=== PATIENT | male | born 1990 | race American Indian/Alaskan Native ===

== ENCOUNTER → 2018-01-06 | Outpatient (CLI) | payer OTHER | LOC: COL.PUL 10:45 | DX: R06.02 Shortness of breath (principal) | CPT/HCPCS: J7674 ==

== ENCOUNTER 2018-05-07 02:12 | Emergency (ER) | payer OTHER ==
[~2018-05-07] VITALS: Ht 177.8 cm; Wt 86.4 kg
[2018-05-07 02:15] VITALS: TEMP 98.8
[2018-05-07] MEDS ORDERED: NEURONTIN100 MG/CAP PO (03:04)
[2018-05-07] MEDS ORDERED: MELADOX NATURAL3 MG PO (03:04)
[2018-05-07] MEDS ORDERED: DESYREL 50MG50 MG PO (03:04)
[2018-05-07] MEDS ORDERED: MOTRIN 800800 MG/TAB PO (03:05)
[2018-05-07] MEDS ORDERED: TYLENOL 325MG325 MG PO (03:05)
[2018-05-07] MEDS ORDERED: PROAIR HFA0.09 MG/AC IH (03:05)
[2018-05-07 03:20] VITALS: BP 144/99; PULSE 129
== END 2018-05-07 03:20 | disposition home or self-care (01) ==
LOC: COL.ER 02:12
DX: S09.90XA Unspecified injury of head, initial encounter (principal); S01.01XA Laceration without foreign body of scalp, initial encounter; S63.642A Sprain of metacarpophalangeal joint of left thumb, initial encounter; Z79.1 Long term (current) use of non-steroidal anti-inflammatories (NSAID); Y00.XXXA Assault by blunt object, initial encounter; Y93.01 Activity, walking, marching and hiking